=== PATIENT | female | born 1985 | race Caucasian/White ===

== ENCOUNTER 2018-02-08 21:11 | Emergency (ER) | payer MEDICAID ==
[~2018-02-08] VITALS: Ht 162.6 cm; Wt 72.6 kg
[2018-02-08 21:21] VITALS: BP_SYST 116
[2018-02-09] VITALS: BP_SYST 121
== END 2018-02-09 | disposition home or self-care (01) ==
LOC: SED 21:11
DX: S93.401A Sprain of unspecified ligament of right ankle, initial encounter (principal); Z87.442 Personal history of urinary calculi; X50.1XXA Overexertion from prolonged static or awkward postures, initial encounter; Y93.89 Activity, other specified; Y92.89 Other specified places as the place of occurrence of the external cause; Y99.8 Other external cause status
CPT/HCPCS: 99283